=== PATIENT | female | born 1950 | race Caucasian/White ===

== ENCOUNTER 2016-08-22 19:43 | Inpatient (IN) | payer SELFPAY ==
[~2016-08-22] VITALS: Ht 152.4 cm; Wt 64.7 kg
[2016-08-22] MEDS ORDERED: PANTOPRAZOLE SODIUM 40 MG/10 ML VIAL IV ONE (20:45)
[2016-08-22] MEDS ORDERED: SODIUM CHLORIDE 0.9% 1,000 ML IV ONE (20:45)
[2016-08-22 20:49] LABS: CONDITION Y; DEFINITIVE SEE PRINTOUT; Hematocrit 26.7 % (36.0-46.0); Hemoglobin 8.7 g/dL (12.2-16.2); Mean Corpuscular Hemoglobin 23.8 pg (28.0-32.0); Mean Corpuscular Hgb Conc. 32.7 g/dL (32.0-36.0); Mean Corpuscular Volume 72.9 fL (80.0-100.0); Mean Platelet Volume 10.2 fL (7.4-10.4); Platelet Count (auto) 354 10^3/uL (140-450); SUSPECT SEE PRINTOUT; White Blood Cell 8.9 10^3/uL (4.4-10.8)
[2016-08-22 21:00] LABS: Albumin 1.9 g/dL (3.4-5.0); Anion Gap 18 (5-15); Aspartate Aminotransferase 52 U/L (15-37); BUN/Creatinine Ratio 24.4; Blood Urea Nitrogen 19 mg/dL (7-18); Calcium 8.3 mg/dL (8.5-10.1); Carbon Dioxide 16 mmol/L (21-32); Chloride 99 mmol/L (98-107); GFR African American 96 mL/min; GFR Non-African American 79 mL/min; Glucose 98 mg/dL (74-106); Magnesium 1.5 mg/dL (1.6-2.6); Sodium 133 mmol/L (136-145)
[2016-08-22 21:05] LABS: Alkaline Phosphatase 423 U/L (45-117); Bilirubin, Total 0.9 mg/dL (0.2-1.0); Total Protein 6.4 g/dL (6.4-8.2)
[2016-08-22 21:33] LABS: INR 1.25 (0.9-1.15); Partial Thromboplastin Time 39.3 sec (22.64-33.71)
[2016-08-22 21:36] LABS: Prothrombin Time 13.7 sec (9.37-12.3)
[2016-08-22 21:43] LABS: Red Cell Distribution Width 20.1 % (11.6-16.0)
[2016-08-22 21:44] LABS: Metamyelocytes % 0; Myelocytes % 0; Promyelocytes % 0; Reactive Lymphocytes 0
[2016-08-22 22:18] LABS: Anisocytosis Slight; Platelet Estimate Adequate
[2016-08-22 22:19] LABS: Hypochromia Moderate
[2016-08-22] MEDS: SODIUM CHLORIDE 0.9% 1,000 ML IV SCH (23:38)
[2016-08-22] MEDS ORDERED: ACETAMINOPHEN 325 MG TAB PO PRN (23:45)
[2016-08-22] MEDS ORDERED: MORPHINE SULF INJ 2 MG/ML SYRINGE 1ML IV PRN (23:45)
[2016-08-22] MEDS ORDERED: SODIUM CHLORIDE 0.9% 500 ML IV ONE (23:45)
[2016-08-22] MEDS ORDERED: POTASSIUM CHL 20 Meq TABLET PO ONE (23:45)
[2016-08-22] MEDS ORDERED: NITROGLYCERIN 0.4 MG SL TAB SL PRN (23:45)
[2016-08-23] VITALS (11 sets, daily range): BP systolic 106–140; BP diastolic 57–89
[2016-08-23] MEDS: MAGNESIUM SULFATE 1GM/100ML 100 ML IV SCH ×4 (00:11→17:35)
[2016-08-23 02:44] LABS: Urine RBC None Seen /hpf (0 - 4)
[2016-08-23 03:23] LABS: Urine Bilirubin Negative (Negative); Urine Blood Negative /uL (Negative); Urine Color Yellow (Yellow); Urine Glucose Normal (Normal); Urine Ketone TRACE (Negative); Urine Nitrite Negative (Negative); Urine Squamous Epithelial Cell FEW /hpf (<5)
[2016-08-23] MEDS: HYDROcodone-ACET 5/325MG TAB PO PRN ×2 (06:01→20:00)
[2016-08-23 07:55] LABS: Basophils # (auto) 0 uL; CONDITION Y; DEFINITIVE SEE PRINTOUT; Eosinophils # (auto) 0.1 uL; Hematocrit 24.5 % (36.0-46.0); Hemoglobin 8.3 g/dL (12.2-16.2); Lymphocytes # (auto) 0.8 uL; Lymphocytes % (auto) 10.4 % (10.0-50.0); Mean Corpuscular Hemoglobin 25.1 pg (28.0-32.0); Mean Corpuscular Hgb Conc. 33.9 g/dL (32.0-36.0); Mean Platelet Volume 10.1 fL (7.4-10.4); Monocytes # (auto) 0.7 uL; Monocytes % (auto) 9.4 % (0.0-12.0); Neutrophils # (auto) 5.7 uL; Neutrophils % (auto) 79.2 % (37.0-80.0); Platelet Count (auto) 279 10^3/uL (140-450); Red Cell Distribution Width 20.7 % (11.6-16.0); SUSPECT SEE PRINTOUT; White Blood Cell 7.3 10^3/uL (4.4-10.8)
[2016-08-23 07:58] LABS: Anisocytosis Slight; Microcytosis Moderate
[2016-08-23 07:59] LABS: Hypochromia Slight; Platelet Estimate Adequate
[2016-08-23] MEDS ORDERED: SUCR1TAB PO (08:10)
[2016-08-23] MEDS ORDERED: CARI-316 PO (08:13)
[2016-08-23] MEDS ORDERED: CITA-77 PO (08:14)
[2016-08-23 08:18] LABS: Albumin 1.7 g/dL (3.4-5.0); Bilirubin, Total 1.3 mg/dL (0.2-1.0); Calcium 7.9 mg/dL (8.5-10.1); Potassium 3.3 mmol/L (3.5-5.1); Total Protein 5.5 g/dL (6.4-8.2)
[2016-08-23] MEDS ORDERED: PANTOPRAZOLE SODIUM 40 MG/10 ML VIAL IV SCH (10:00)
[2016-08-23] MEDS ORDERED: SUCRALFATE 1 GM/10 ML ORAL SUSP PO SCH (11:30)
[2016-08-23] MEDS ORDERED: POTASSIUM CHL 20 Meq TABLET PO ONE (12:00)
[2016-08-23] MEDS ORDERED: LIDOCAINE VISCOUS 2% 15ML UD ONE (12:51)
[2016-08-23] MEDS ORDERED: SODIUM CHLORIDE LOCK 10 ML ONE (12:51)
[2016-08-23] MEDS ORDERED: diphenhdrAMINE HCL 50 MG/1 ML VL ONE (12:53)
[2016-08-23] MEDS: fentaNYL CITRATE 100 MCG/2 ML VL ONE ×2 (13:09→13:13)
[2016-08-23] MEDS: MIDAZOLAM HCL 5 MG/ML-1ML VIAL ONE ×2 (13:09→13:13)
[2016-08-23 16:29] LABS: Hemoglobin 9.5 g/dL (12.2-16.2)
[2016-08-23] MEDS: SODIUM CHLORIDE 0.9% 1,000 ML IV SCH (16:39)
[2016-08-23 18:14] LABS: BUN/Creatinine Ratio 23.5; Calcium 8.3 mg/dL (8.5-10.1); Potassium 3.3 mmol/L (3.5-5.1)
[2016-08-23] MEDS: ONDANSETRON HCL 4 MG/2 ML VIAL IV PRN (22:31)
[2016-08-23] MEDS: MORPHINE SULF INJ 2 MG/ML SYRINGE 1ML IV PRN (22:32)
[2016-08-24] MEDS: ZOLPIDEM TARTRATE 5 MG TAB PO PRN
[2016-08-24] MEDS: SODIUM CHLORIDE 0.9% 1,000 ML IV SCH ×2 (02:42→18:28)
[2016-08-24] MEDS: MORPHINE SULF INJ 2 MG/ML SYRINGE 1ML IV PRN ×3 (04:28→23:00)
[2016-08-24] MEDS: ONDANSETRON HCL 4 MG/2 ML VIAL IV PRN ×3 (04:28→23:57)
[2016-08-24 04:55] VITALS: BP 136/75
[2016-08-24 06:19] LABS: CONDITION Y; DEFINITIVE SEE PRINTOUT; Hemoglobin 8.9 g/dL (12.2-16.2); Mean Corpuscular Hemoglobin 24.4 pg (28.0-32.0); Mean Corpuscular Hgb Conc. 32.8 g/dL (32.0-36.0); Mean Corpuscular Volume 74.5 fL (80.0-100.0); Mean Platelet Volume 10.9 fL (7.4-10.4); Platelet Count (auto) 285 10^3/uL (140-450); SUSPECT SEE PRINTOUT; White Blood Cell 12.2 10^3/uL (4.4-10.8)
[2016-08-24 06:22] LABS: Metamyelocytes % 0; Myelocytes % 0; Promyelocytes % 0; Reactive Lymphocytes 0
[2016-08-24 06:37] LABS: Magnesium 2.1 mg/dL (1.6-2.6); Potassium 3.4 mmol/L (3.5-5.1)
[2016-08-24 08:00] VITALS: BP 132/84
[2016-08-24 08:45] VITALS: BP 132/84
[2016-08-24 09:17] LABS: Microcytosis Moderate
[2016-08-24 09:18] LABS: Anisocytosis Slight; Platelet Estimate Adequate
[2016-08-24 09:19] LABS: Hypochromia Slight
[2016-08-24] MEDS: PANTOPRAZOLE 40 MG TAB PO SCH (10:20)
[2016-08-24] MEDS ORDERED: POTASSIUM CHL 20 Meq TABLET PO ONE (12:30)
[2016-08-24 13:06] VITALS: BP 141/73
[2016-08-24 13:13] LABS: Albumin 1.7 g/dL (3.4-5.0); BUN/Creatinine Ratio 24.4; Bilirubin, Total 2.3 mg/dL (0.2-1.0); Calcium 8.2 mg/dL (8.5-10.1); Potassium 3.5 mmol/L (3.5-5.1); Total Protein 5.9 g/dL (6.4-8.2)
[2016-08-24 16:23] VITALS: BP 147/93
[2016-08-24 17:12] LABS: Urine Color Yellow (Yellow); Urine Glucose Normal (Normal); Urine Mucus FEW (None Seen); Urine RBC 50 /hpf (0 - 4)
[2016-08-24 17:27] LABS: Urine Bilirubin 1+ (Negative); Urine Blood 2+ /uL (Negative); Urine Ketone 2+ (Negative); Urine Nitrite POSITIVE (Negative)
[2016-08-24 21:47] VITALS: BP 142/70
[2016-08-25] MEDS ORDERED: SODIUM CHLORIDE 0.9% 1,000 ML IV ONE (00:45)
[2016-08-25] MEDS ORDERED: VANCOMYCIN PER PHARMACY 0 MG IV SCH (00:45)
[2016-08-25] MEDS ORDERED: VANCOMYCIN 1GM/250ML D5W 250 ML IV ONE (01:00)
[2016-08-25 03:49] LABS: Urine Blood 2+ /uL (Negative); Urine Color Yellow (Yellow); Urine Glucose Normal (Normal); Urine Ketone 1+ (Negative); Urine Mucus FEW (None Seen); Urine Nitrite Negative (Negative); Urine RBC 1 /hpf (0 - 4)
[2016-08-25 03:57] LABS: Urine Bilirubin POSITIVE (Negative)
[2016-08-25 05:03] VITALS: BP 97/70
[2016-08-25 06:11] LABS: CONDITION Y; DEFINITIVE SEE PRINTOUT; Hematocrit 26.1 % (36.0-46.0); Hemoglobin 8.5 g/dL (12.2-16.2); Mean Corpuscular Hemoglobin 24.3 pg (28.0-32.0); Mean Corpuscular Hgb Conc. 32.6 g/dL (32.0-36.0); Mean Corpuscular Volume 74.6 fL (80.0-100.0); Platelet Count (auto) 261 10^3/uL (140-450); SUSPECT SEE PRINTOUT; White Blood Cell 12.3 10^3/uL (4.4-10.8)
[2016-08-25 06:13] LABS: Red Cell Distribution Width 20.3 % (11.6-16.0)
[2016-08-25 06:14] LABS: Metamyelocytes % 0; Myelocytes % 0; Promyelocytes % 0; Reactive Lymphocytes 0
[2016-08-25 06:28] LABS: Potassium 3.4 mmol/L (3.5-5.1)
[2016-08-25 06:32] LABS: Albumin 1.5 g/dL (3.4-5.0); BUN/Creatinine Ratio 18.6; Calcium 7.7 mg/dL (8.5-10.1)
[2016-08-25 06:36] LABS: Bilirubin, Total 3.8 mg/dL (0.2-1.0); Total Protein 5.6 g/dL (6.4-8.2)
[2016-08-25 08:00] VITALS: BP 108/75
[2016-08-25] MEDS: VANCOMYCIN 1GM/250ML D5W 250 ML IV SCH ×2 (08:57→21:34)
[2016-08-25 09:00] VITALS: BP 108/75
[2016-08-25 10:10] LABS: INR 1.43 (0.9-1.15)
[2016-08-25 10:16] LABS: Prothrombin Time 15.6 sec (9.37-12.3)
[2016-08-25 10:23] LABS: Bilirubin, Total 3.6 mg/dL (0.2-1.0)
[2016-08-25 10:30] LABS: Bilirubin, Direct 3.1 mg/dL (0-0.2)
[2016-08-25] MEDS: PANTOPRAZOLE 40 MG TAB PO SCH (10:53)
[2016-08-25 11:08] LABS: Platelet Estimate Adequate
[2016-08-25 11:10] LABS: Anisocytosis Slight; Burr Cells FEW; Hypochromia Moderate; Microcytosis Moderate; Ovalocytes FEW; Tear Drop Cells FEW
[2016-08-25 13:49] VITALS: BP 116/73
[2016-08-25] MEDS: LEVOFLOXACIN 500MG 100 ML IV SCH (14:51)
[2016-08-25] MEDS: SOD CHL 0.9%/ KCL 20MEQ 1,000 ML IV SCH ×2 (17:05→17:24)
[2016-08-25 17:18] VITALS: BP 125/77
[2016-08-25] MEDS: MORPHINE SULF INJ 2 MG/ML SYRINGE 1ML IV PRN ×2 (17:24→21:35)
[2016-08-25] MEDS: ONDANSETRON HCL 4 MG/2 ML VIAL IV PRN (21:35)
[2016-08-25 22:00] VITALS: BP 110/63
[2016-08-26] VITALS (18 sets, daily range): BP systolic 91–126; BP diastolic 60–87
[2016-08-26] MEDS: SOD CHL 0.9%/ KCL 20MEQ 1,000 ML IV SCH (04:45)
[2016-08-26 08:13] LABS: Basophils # (auto) 0 uL; Basophils % (auto) 0.3 % (0.0-2.0); CONDITION Y; DEFINITIVE SEE PRINTOUT; Eosinophils # (auto) 0 uL; Eosinophils % (auto) 0.2 % (0.0-7.0); Hematocrit 23.7 % (36.0-46.0); Hemoglobin 7.9 g/dL (12.2-16.2); Lymphocytes # (auto) 0.4 uL; Lymphocytes % (auto) 3.1 % (10.0-50.0); Mean Corpuscular Hemoglobin 24.3 pg (28.0-32.0); Mean Corpuscular Hgb Conc. 33.2 g/dL (32.0-36.0); Mean Corpuscular Volume 73.3 fL (80.0-100.0); Mean Platelet Volume 11.6 fL (7.4-10.4); Monocytes # (auto) 0.4 uL; Monocytes % (auto) 3.1 % (0.0-12.0); Neutrophils # (auto) 10.9 uL; Neutrophils % (auto) 93.3 % (37.0-80.0); Platelet Count (auto) 238 10^3/uL (140-450); SUSPECT SEE PRINTOUT; White Blood Cell 11.7 10^3/uL (4.4-10.8)
[2016-08-26 08:19] LABS: Red Cell Distribution Width 20.1 % (11.6-16.0)
[2016-08-26] MEDS: VANCOMYCIN 1GM/250ML D5W 250 ML IV SCH (08:24)
[2016-08-26] MEDS: SODIUM CHLORIDE 0.9% 1,000 ML IV SCH ×2 (08:25→21:05)
[2016-08-26 08:29] LABS: Platelet Estimate Adequate
[2016-08-26 08:32] LABS: Albumin 1.3 g/dL (3.4-5.0); Anisocytosis Moderate; BUN/Creatinine Ratio 21.7; Bilirubin, Total 4.2 mg/dL (0.2-1.0); Calcium 7.5 mg/dL (8.5-10.1); Hypochromia Moderate; Magnesium 1.7 mg/dL (1.6-2.6); Microcytosis Moderate; Phosphorus 1.4 mg/dL (2.5-4.90); Potassium 3.6 mmol/L (3.5-5.1); Total Protein 4.9 g/dL (6.4-8.2)
[2016-08-26 08:33] LABS: Burr Cells FEW; Ovalocytes FEW
[2016-08-26] MEDS: PANTOPRAZOLE 40 MG TAB PO SCH (11:32)
[2016-08-26] MEDS: LEVOFLOXACIN 500MG 100 ML IV SCH (11:32)
[2016-08-26 22:29] LABS: Hemoglobin 11.4 g/dL (12.2-16.2)
[2016-08-27 05:06] VITALS: BP 98/63
[2016-08-27 06:32] LABS: CONDITION Y; DEFINITIVE SEE PRINTOUT; Hematocrit 30.8 % (36.0-46.0); Hemoglobin 10.2 g/dL (12.2-16.2); Mean Corpuscular Hemoglobin 25.6 pg (28.0-32.0); Mean Corpuscular Hgb Conc. 33.2 g/dL (32.0-36.0); Mean Corpuscular Volume 77.3 fL (80.0-100.0); Mean Platelet Volume 11.6 fL (7.4-10.4); Platelet Count (auto) 211 10^3/uL (140-450); SUSPECT SEE PRINTOUT; White Blood Cell 12.8 10^3/uL (4.4-10.8)
[2016-08-27 06:38] LABS: Red Cell Distribution Width 23.6 % (11.6-16.0)
[2016-08-27 06:39] LABS: Metamyelocytes % 0; Myelocytes % 0; Promyelocytes % 0; Reactive Lymphocytes 0
[2016-08-27 06:58] LABS: Albumin 1.2 g/dL (3.4-5.0); Bilirubin, Total 6.4 mg/dL (0.2-1.0); Calcium 7.5 mg/dL (8.5-10.1); Magnesium 1.9 mg/dL (1.6-2.6); Phosphorus 1.4 mg/dL (2.5-4.90); Potassium 3.3 mmol/L (3.5-5.1); Total Protein 4.7 g/dL (6.4-8.2)
[2016-08-27 07:52] LABS: Anisocytosis Moderate; Giant Platelets Few; Hypochromia Slight; Ovalocytes FEW; Platelet Estimate Adequate; Tear Drop Cells FEW
[2016-08-27 08:00] VITALS: BP 111/53
[2016-08-27 09:00] VITALS: BP 111/53
[2016-08-27] MEDS: LEVOFLOXACIN 500MG 100 ML IV SCH (10:47)
[2016-08-27] MEDS: PANTOPRAZOLE 40 MG TAB PO SCH (10:47)
[2016-08-27] MEDS: SODIUM CHLORIDE 0.9% 1,000 ML IV SCH (10:47)
[2016-08-27 13:00] VITALS: BP 111/78
[2016-08-27] MEDS: MEROPENEM 1GM IVPB 100 ML IV SCH (16:57)
[2016-08-27 17:00] VITALS: BP 100/63
[2016-08-27] MEDS: MORPHINE SULF INJ 2 MG/ML SYRINGE 1ML IV PRN (19:26)
[2016-08-27] MEDS: ONDANSETRON HCL 4 MG/2 ML VIAL IV PRN (19:26)
[2016-08-27 22:34] VITALS: BP 100/64
[2016-08-28] MEDS: SODIUM CHLORIDE 0.9% 1,000 ML IV SCH ×2 (00:01→13:05)
[2016-08-28] MEDS: MEROPENEM 1GM IVPB 100 ML IV SCH ×3 (00:05→16:00)
[2016-08-28] MEDS: ONDANSETRON HCL 4 MG/2 ML VIAL IV PRN ×3 (01:18→03:48)
[2016-08-28] MEDS: HYDROcodone-ACET 5/325MG TAB PO PRN (01:19)
[2016-08-28] MEDS: MORPHINE SULF INJ 2 MG/ML SYRINGE 1ML IV PRN ×2 (03:48)
[2016-08-28 04:59] VITALS: BP 104/68
[2016-08-28 06:59] LABS: CONDITION Y; DEFINITIVE SEE PRINTOUT; Hematocrit 30.9 % (36.0-46.0); Hemoglobin 10.2 g/dL (12.2-16.2); Mean Corpuscular Hemoglobin 25.7 pg (28.0-32.0); Mean Corpuscular Hgb Conc. 33.1 g/dL (32.0-36.0); Mean Corpuscular Volume 77.7 fL (80.0-100.0); Mean Platelet Volume 11.9 fL (7.4-10.4); Platelet Count (auto) 210 10^3/uL (140-450); SUSPECT SEE PRINTOUT; White Blood Cell 13.9 10^3/uL (4.4-10.8)
[2016-08-28 07:27] LABS: Red Cell Distribution Width 23.2 % (11.6-16.0)
[2016-08-28 07:28] LABS: Metamyelocytes % 0; Myelocytes % 0; Promyelocytes % 0; Reactive Lymphocytes 0
[2016-08-28 07:42] LABS: Albumin 1.1 g/dL (3.4-5.0); Bilirubin, Total 6.1 mg/dL (0.2-1.0); Calcium 7.7 mg/dL (8.5-10.1); Magnesium 1.9 mg/dL (1.6-2.6); Phosphorus 1.8 mg/dL (2.5-4.90); Potassium 3.4 mmol/L (3.5-5.1); Total Protein 4.7 g/dL (6.4-8.2)
[2016-08-28 09:00] VITALS: BP 97/69
[2016-08-28] MEDS: PANTOPRAZOLE 40 MG TAB PO SCH (09:49)
[2016-08-28 10:59] LABS: Microcytosis Slight; Platelet Estimate Adequate
[2016-08-28 11:00] LABS: Anisocytosis Moderate; Hypochromia Slight; Ovalocytes FEW
[2016-08-28 11:01] LABS: Burr Cells FEW; Tear Drop Cells FEW
[2016-08-28 11:02] LABS: Large Platelets FEW
[2016-08-28 13:00] VITALS: BP 109/77
[2016-08-28 17:00] VITALS: BP 106/58
[2016-08-28 20:00] VITALS: BP 111/53
[2016-08-28 21:30] VITALS: BP 97/65
[2016-08-29] VITALS (7 sets, daily range): BP systolic 89–116; BP diastolic 48–68
[2016-08-29] MEDS: SODIUM CHLORIDE 0.9% 1,000 ML IV SCH ×2 (02:25→15:47)
[2016-08-29] MEDS: MORPHINE SULFATE 4 MG/ML SYRG IV PRN (06:50)
[2016-08-29] MEDS: MEROPENEM 1GM IVPB 100 ML IV SCH ×3 (08:45→15:48)
[2016-08-29] MEDS: PANTOPRAZOLE 40 MG TAB PO SCH (10:00)
[2016-08-30] MEDS: MEROPENEM 1GM IVPB 100 ML IV SCH ×4 (00:05→23:54)
[2016-08-30] MEDS: MORPHINE SULFATE 4 MG/ML SYRG IV PRN ×3 (00:06→21:32)
[2016-08-30] MEDS: SODIUM CHLORIDE 0.9% 1,000 ML IV SCH ×2 (04:20→18:25)
[2016-08-30 05:00] VITALS: BP 102/59
[2016-08-30 07:55] VITALS: BP 101/62
[2016-08-30 09:00] VITALS: BP 101/62
[2016-08-30] MEDS: PANTOPRAZOLE 40 MG TAB PO SCH (10:00)
[2016-08-30 13:00] VITALS: BP 108/79
[2016-08-30 17:00] VITALS: BP 110/78
[2016-08-30 22:00] VITALS: BP 106/74
[2016-08-31] MEDS: MORPHINE SULFATE 4 MG/ML SYRG IV PRN ×3 (01:34→16:25)
[2016-08-31 05:00] VITALS: BP 100/69
[2016-08-31] MEDS: MEROPENEM 1GM IVPB 100 ML IV SCH ×2 (08:01→16:25)
[2016-08-31] MEDS: SODIUM CHLORIDE 0.9% 1,000 ML IV SCH ×2 (08:01→22:51)
[2016-08-31 09:00] VITALS: BP 107/70
[2016-08-31 10:41] LABS: INR 1.52 (0.9-1.15)
[2016-08-31 10:46] LABS: Prothrombin Time 16.6 sec (9.37-12.3)
[2016-08-31 12:11] VITALS: BP 120/83
[2016-08-31] MEDS: PANTOPRAZOLE 40 MG TAB PO SCH (12:34)
[2016-08-31] MEDS ORDERED: LIDOCAINE 1% HCL (LOCAL ANESTH.) INJ 20ML MDV ID ONE (16:00)
[2016-08-31 16:23] VITALS: BP 110/71
[2016-08-31 18:27] LABS: CONDITION Y; DEFINITIVE SEE PRINTOUT; Hematocrit 29.3 % (36.0-46.0); Hemoglobin 9.7 g/dL (12.2-16.2); Mean Corpuscular Hemoglobin 25.8 pg (28.0-32.0); Mean Corpuscular Hgb Conc. 33.2 g/dL (32.0-36.0); Mean Corpuscular Volume 77.8 fL (80.0-100.0); Mean Platelet Volume 11.6 fL (7.4-10.4); Platelet Count (auto) 214 10^3/uL (140-450); SUSPECT SEE PRINTOUT; White Blood Cell 9.8 10^3/uL (4.4-10.8)
[2016-08-31 18:30] LABS: Red Cell Distribution Width 23.3 % (11.6-16.0)
[2016-08-31 18:32] LABS: Metamyelocytes % 0; Myelocytes % 0; Promyelocytes % 0; Reactive Lymphocytes 0
[2016-08-31 18:40] LABS: Anisocytosis Moderate; Hypochromia Slight; Platelet Estimate Adequate
[2016-08-31 18:42] LABS: Burr Cells FEW; Ovalocytes FEW; Platelet Clumps FEW; Tear Drop Cells FEW
[2016-08-31] MEDS: NEUTRA-PHOS TABLET PO SCH ×2 (18:42→22:50)
[2016-08-31 18:43] LABS: Giant Platelets Few
[2016-08-31 18:47] LABS: Albumin 1.1 g/dL (3.4-5.0); BUN/Creatinine Ratio 33.3; Bilirubin, Total 8.6 mg/dL (0.2-1.0); Calcium 7.9 mg/dL (8.5-10.1); Potassium 3.6 mmol/L (3.5-5.1)
[2016-08-31 20:00] VITALS: BP 112/84
[2016-08-31] MEDS: HYDROcodone-ACET 5/325MG TAB PO PRN (21:09)
[2016-08-31 22:00] VITALS: BP 112/84
[2016-08-31] MEDS: SODIUM CHLOR 0.9% PF (SALINE LOCK) 10ML VIAL IV SCH (22:50)
[2016-09-01] VITALS (7 sets, daily range): BP systolic 100–113; BP diastolic 61–76
[2016-09-01] MEDS: MORPHINE SULFATE 4 MG/ML SYRG IV PRN ×4 (00:46→23:04)
[2016-09-01] MEDS: MEROPENEM 1GM IVPB 100 ML IV SCH ×4 (00:47→23:56)
[2016-09-01] MEDS: NEUTRA-PHOS TABLET PO SCH ×4 (09:43→23:04)
[2016-09-01] MEDS: SODIUM CHLOR 0.9% PF (SALINE LOCK) 10ML VIAL IV SCH ×2 (10:00→23:05)
[2016-09-01] MEDS: PANTOPRAZOLE 40 MG TAB PO SCH (10:00)
[2016-09-01] MEDS: SODIUM CHLORIDE 0.9% 1,000 ML IV SCH ×2 (10:03→23:56)
[2016-09-01] MEDS ORDERED: PHYTONADIONE ORAL Susp 10 mg/10ml PO ONE (10:30)
[2016-09-02] MEDS: ZOLPIDEM TARTRATE 5 MG TAB PO PRN (00:54)
[2016-09-02 05:00] VITALS: BP 107/67
[2016-09-02 05:58] LABS: CONDITION Y; DEFINITIVE SEE PRINTOUT; Hematocrit 31.3 % (36.0-46.0); Hemoglobin 10.6 g/dL (12.2-16.2); INR 1.19 (0.9-1.15); Mean Corpuscular Hemoglobin 26.5 pg (28.0-32.0); Mean Corpuscular Hgb Conc. 33.8 g/dL (32.0-36.0); Mean Corpuscular Volume 78.3 fL (80.0-100.0); Mean Platelet Volume 12.6 fL (7.4-10.4); Platelet Count (auto) 192 10^3/uL (140-450); SUSPECT SEE PRINTOUT; White Blood Cell 11.7 10^3/uL (4.4-10.8)
[2016-09-02 06:06] LABS: Red Cell Distribution Width 24.3 % (11.6-16.0)
[2016-09-02 06:07] LABS: Metamyelocytes % 0; Myelocytes % 0; Promyelocytes % 0; Reactive Lymphocytes 0
[2016-09-02 06:08] LABS: Albumin 1.1 g/dL (3.4-5.0); BUN/Creatinine Ratio 38.9; Calcium 7.8 mg/dL (8.5-10.1); Total Protein 5.2 g/dL (6.4-8.2)
[2016-09-02 06:14] LABS: Potassium 3.6 mmol/L (3.5-5.1)
[2016-09-02 06:32] LABS: Hypersegmented Neutrophils Present; Platelet Estimate Adequate
[2016-09-02 06:33] LABS: Anisocytosis Moderate; Hypochromia Slight
[2016-09-02 06:35] LABS: Schistocytes FEW
[2016-09-02 08:00] VITALS: BP 109/76
[2016-09-02 08:02] VITALS: BP 109/76
[2016-09-02] MEDS: MEROPENEM 1GM IVPB 100 ML IV SCH ×2 (08:14→18:20)
[2016-09-02] MEDS: NEUTRA-PHOS TABLET PO SCH ×4 (09:00→22:34)
[2016-09-02] MEDS: PANTOPRAZOLE 40 MG TAB PO SCH (10:00)
[2016-09-02] MEDS: SODIUM CHLOR 0.9% PF (SALINE LOCK) 10ML VIAL IV SCH ×2 (11:03→22:34)
[2016-09-02 12:02] VITALS: BP 108/71
[2016-09-02] MEDS: SODIUM CHLORIDE 0.9% 1,000 ML IV SCH (12:36)
[2016-09-02 16:54] VITALS: BP 112/74
[2016-09-02] MEDS: MORPHINE SULFATE 4 MG/ML SYRG IV PRN ×2 (18:31→22:34)
[2016-09-02 21:06] VITALS: BP 118/57
[2016-09-03] MEDS: MEROPENEM 1GM IVPB 100 ML IV SCH ×4 (00:37→23:52)
[2016-09-03] MEDS: ZOLPIDEM TARTRATE 5 MG TAB PO PRN (00:40)
[2016-09-03 05:25] VITALS: BP 111/73
[2016-09-03 05:30] LABS: CONDITION Y; DEFINITIVE SEE PRINTOUT; Hematocrit 28.8 % (36.0-46.0); Hemoglobin 9.6 g/dL (12.2-16.2); Mean Corpuscular Hemoglobin 26.1 pg (28.0-32.0); Mean Corpuscular Hgb Conc. 33.5 g/dL (32.0-36.0); Mean Corpuscular Volume 78.1 fL (80.0-100.0); Mean Platelet Volume 13.1 fL (7.4-10.4); Platelet Count (auto) 166 10^3/uL (140-450); SUSPECT SEE PRINTOUT
[2016-09-03 05:53] LABS: Red Cell Distribution Width 24.4 % (11.6-16.0)
[2016-09-03 05:54] LABS: Myelocytes % 0; Promyelocytes % 0; Reactive Lymphocytes 0
[2016-09-03 06:02] LABS: BUN/Creatinine Ratio 45.2; Bilirubin, Total 10.6 mg/dL (0.2-1.0); Calcium 7.7 mg/dL (8.5-10.1); Potassium 3.4 mmol/L (3.5-5.1); Total Protein 4.6 g/dL (6.4-8.2)
[2016-09-03 06:22] LABS: Metamyelocytes % 1
[2016-09-03 06:23] LABS: Anisocytosis Moderate; Hypochromia Slight; Platelet Estimate Adequate; Schistocytes FEW
[2016-09-03 06:24] LABS: Microcytosis Slight
[2016-09-03] MEDS: SODIUM CHLORIDE 0.9% 1,000 ML IV SCH (06:45)
[2016-09-03 08:00] VITALS: BP 103/64
[2016-09-03 08:48] VITALS: BP 103/64
[2016-09-03] MEDS: NEUTRA-PHOS TABLET PO SCH ×4 (09:00→21:52)
[2016-09-03] MEDS: PANTOPRAZOLE 40 MG TAB PO SCH (10:00)
[2016-09-03] MEDS: SODIUM CHLOR 0.9% PF (SALINE LOCK) 10ML VIAL IV SCH ×2 (10:31→21:53)
[2016-09-03 12:09] VITALS: BP 121/66
[2016-09-03] MEDS ORDERED: ZOLPIDEM TARTRATE 5 MG TAB PO PRN (14:00)
[2016-09-03] MEDS ORDERED: POTASSIUM CHL 10 Meq TABLET PO ONE (14:00)
[2016-09-03] MEDS: SOD CHL 0.9%/ KCL 20MEQ 1,000 ML IV SCH (15:59)
[2016-09-03 16:33] VITALS: BP 116/58
[2016-09-03] MEDS: MORPHINE SULFATE 4 MG/ML SYRG IV PRN (16:52)
[2016-09-03 21:30] VITALS: BP 102/66
[2016-09-03] MEDS: NYSTATIN TOPICAL POWDER 15GM TOP SCH (21:52)
[2016-09-04] MEDS: MORPHINE SULFATE 4 MG/ML SYRG IV PRN ×3 (00:48→22:57)
[2016-09-04] MEDS: SOD CHL 0.9%/ KCL 20MEQ 1,000 ML IV SCH ×2 (04:35→17:08)
[2016-09-04 05:00] VITALS: BP 114/68
[2016-09-04 06:18] LABS: Albumin 1.1 g/dL (3.4-5.0); Calcium 7.8 mg/dL (8.5-10.1)
[2016-09-04 06:20] LABS: BUN/Creatinine Ratio 31.8
[2016-09-04 06:28] LABS: Bilirubin, Total 13.2 mg/dL (0.2-1.0); Total Protein 5.3 g/dL (6.4-8.2)
[2016-09-04 06:33] LABS: Potassium 3.7 mmol/L (3.5-5.1)
[2016-09-04] MEDS: MEROPENEM 1GM IVPB 100 ML IV SCH ×2 (08:00→16:00)
[2016-09-04 09:00] VITALS: BP 111/65
[2016-09-04] MEDS: NEUTRA-PHOS TABLET PO SCH ×4 (09:00→22:51)
[2016-09-04] MEDS: NYSTATIN TOPICAL POWDER 15GM TOP SCH ×2 (10:00→22:00)
[2016-09-04] MEDS: PANTOPRAZOLE 40 MG TAB PO SCH (10:00)
[2016-09-04] MEDS: SODIUM CHLOR 0.9% PF (SALINE LOCK) 10ML VIAL IV SCH ×2 (10:00→22:51)
[2016-09-04] MEDS: PRO-STAT 64 30ML PO SCH ×2 (11:54→17:20)
[2016-09-04] MEDS: BOOST PLUS 8 ounce PO SCH ×2 (11:54→17:08)
[2016-09-04 13:00] VITALS: BP 123/72
[2016-09-04] MEDS ORDERED: IOHEXOL 300 MG/ML 100ML BOTTLE IJ ONE ×2 (13:41→15:45)
[2016-09-04 16:50] VITALS: BP 114/78
[2016-09-04 20:00] VITALS: BP 144/78
[2016-09-04 22:00] VITALS: BP 144/78
[2016-09-05] MEDS: MEROPENEM 1GM IVPB 100 ML IV SCH ×3 (00:55→17:28)
[2016-09-05 05:47] VITALS: BP 126/67
[2016-09-05] MEDS: SOD CHL 0.9%/ KCL 20MEQ 1,000 ML IV SCH (07:15)
[2016-09-05 08:00] VITALS: BP 125/74
[2016-09-05] MEDS: PRO-STAT 64 30ML PO SCH ×3 (08:00→19:13)
[2016-09-05] MEDS: BOOST PLUS 8 ounce PO SCH ×3 (08:00→19:13)
[2016-09-05 08:41] VITALS: BP 125/74
[2016-09-05] MEDS: NEUTRA-PHOS TABLET PO SCH ×4 (09:00→21:56)
[2016-09-05] MEDS: PANTOPRAZOLE 40 MG TAB PO SCH (10:00)
[2016-09-05] MEDS: SODIUM CHLOR 0.9% PF (SALINE LOCK) 10ML VIAL IV SCH ×2 (10:00→21:56)
[2016-09-05] MEDS: NYSTATIN TOPICAL POWDER 15GM TOP SCH ×2 (10:00→21:56)
[2016-09-05 16:24] VITALS: BP 127/86
[2016-09-05 20:00] VITALS: BP 123/89
[2016-09-05 21:50] VITALS: BP 123/89
[2016-09-06 05:34] VITALS: BP 112/81
[2016-09-06 08:00] VITALS: BP 123/77
[2016-09-06] MEDS: PRO-STAT 64 30ML PO SCH ×3 (08:00→19:02)
[2016-09-06] MEDS: BOOST PLUS 8 ounce PO SCH ×3 (08:00→18:00)
[2016-09-06 08:30] VITALS: BP 123/77
[2016-09-06] MEDS: SOD CHL 0.9%/ KCL 20MEQ 1,000 ML IV SCH ×3 (09:55→23:15)
[2016-09-06] MEDS: SODIUM CHLOR 0.9% PF (SALINE LOCK) 10ML VIAL IV SCH ×2 (10:00→21:48)
[2016-09-06 10:44] LABS: CONDITION Y; DEFINITIVE SEE PRINTOUT; Hematocrit 32.6 % (36.0-46.0); Hemoglobin 10.9 g/dL (12.2-16.2); Mean Corpuscular Hgb Conc. 33.5 g/dL (32.0-36.0); Mean Corpuscular Volume 77.5 fL (80.0-100.0); Mean Platelet Volume 10.5 fL (7.4-10.4); Platelet Count (auto) 119 10^3/uL (140-450); SUSPECT SEE PRINTOUT; White Blood Cell 14.2 10^3/uL (4.4-10.8)
[2016-09-06] MEDS: PANTOPRAZOLE 40 MG TAB PO SCH (10:50)
[2016-09-06] MEDS: NEUTRA-PHOS TABLET PO SCH ×4 (10:50→21:48)
[2016-09-06] MEDS: NYSTATIN TOPICAL POWDER 15GM TOP SCH ×2 (10:50→21:48)
[2016-09-06] MEDS: MEROPENEM 1GM IVPB 100 ML IV SCH ×4 (10:50→23:43)
[2016-09-06 10:54] LABS: Red Cell Distribution Width 25.4 % (11.6-16.0)
[2016-09-06 11:00] LABS: Metamyelocytes % 0; Myelocytes % 0; Promyelocytes % 0; Reactive Lymphocytes 0
[2016-09-06 11:11] LABS: Albumin 1.2 g/dL (3.4-5.0); BUN/Creatinine Ratio 32.5; Bilirubin, Total 15.5 mg/dL (0.2-1.0); Calcium 8.1 mg/dL (8.5-10.1); Potassium 3.4 mmol/L (3.5-5.1); Total Protein 5.2 g/dL (6.4-8.2)
[2016-09-06 12:11] LABS: Microcytosis Slight; Platelet Estimate Decreased
[2016-09-06 12:12] LABS: Anisocytosis Moderate
[2016-09-06 12:13] LABS: Hypochromia Slight
[2016-09-06 13:00] VITALS: BP 110/77
[2016-09-06] MEDS: ONDANSETRON HCL 4 MG/2 ML VIAL IV PRN (14:19)
[2016-09-06] MEDS: MORPHINE SULFATE 4 MG/ML SYRG IV PRN (14:20)
[2016-09-06 16:35] VITALS: BP 102/67
[2016-09-06 21:37] VITALS: BP 116/77
[2016-09-07] VITALS (7 sets, daily range): BP systolic 93–112; BP diastolic 61–72
[2016-09-07] MEDS: NEUTRA-PHOS TABLET PO SCH ×4 (08:17→21:54)
[2016-09-07] MEDS: PANTOPRAZOLE 40 MG TAB PO SCH (08:17)
[2016-09-07] MEDS: MEROPENEM 1GM IVPB 100 ML IV SCH ×3 (08:18→23:43)
[2016-09-07] MEDS: PRO-STAT 64 30ML PO SCH ×3 (08:32→17:07)
[2016-09-07] MEDS: BOOST PLUS 8 ounce PO SCH ×3 (08:32→17:06)
[2016-09-07] MEDS: SODIUM CHLOR 0.9% PF (SALINE LOCK) 10ML VIAL IV SCH ×2 (08:33→21:54)
[2016-09-07] MEDS: MORPHINE SULFATE 4 MG/ML SYRG IV PRN (12:25)
[2016-09-07] MEDS: NYSTATIN TOPICAL POWDER 15GM TOP SCH ×2 (13:01→21:55)
[2016-09-07] MEDS: SOD CHL 0.9%/ KCL 20MEQ 1,000 ML IV SCH (16:08)
[2016-09-08] MEDS: SOD CHL 0.9%/ KCL 20MEQ 1,000 ML IV SCH ×2 (02:16→21:17)
[2016-09-08 05:00] VITALS: BP 104/67
[2016-09-08 08:00] VITALS: BP 104/73
[2016-09-08] MEDS: PANTOPRAZOLE 40 MG TAB PO SCH (09:07)
[2016-09-08] MEDS: MEROPENEM 1GM IVPB 100 ML IV SCH ×2 (09:07→16:00)
[2016-09-08] MEDS: NEUTRA-PHOS TABLET PO SCH ×4 (09:07→22:54)
[2016-09-08] MEDS: NYSTATIN TOPICAL POWDER 15GM TOP SCH ×2 (09:07→22:54)
[2016-09-08 09:13] VITALS: BP 104/73
[2016-09-08] MEDS: BOOST PLUS 8 ounce PO SCH ×3 (09:35→17:47)
[2016-09-08] MEDS: SODIUM CHLOR 0.9% PF (SALINE LOCK) 10ML VIAL IV SCH ×2 (09:35→22:54)
[2016-09-08] MEDS: PRO-STAT 64 30ML PO SCH ×3 (09:35→17:47)
[2016-09-08 12:47] VITALS: BP 115/84
[2016-09-08] MEDS: HYDROcodone-ACET 5/325MG TAB PO PRN ×2 (14:13→17:49)
[2016-09-08 16:32] VITALS: BP 108/69
[2016-09-08 21:17] VITALS: BP 103/71
[2016-09-09] MEDS: MEROPENEM 1GM IVPB 100 ML IV SCH ×3 (01:40→15:15)
[2016-09-09] MEDS: MORPHINE SULFATE 4 MG/ML SYRG IV PRN ×3 (01:40→13:12)
[2016-09-09] MEDS: ONDANSETRON HCL 4 MG/2 ML VIAL IV PRN ×2 (01:41→07:27)
[2016-09-09] MEDS: SOD CHL 0.9%/ KCL 20MEQ 1,000 ML IV SCH ×2 (04:39→17:55)
[2016-09-09 04:57] VITALS: BP 118/71
[2016-09-09 07:51] VITALS: BP 113/78
[2016-09-09] MEDS: PRO-STAT 64 30ML PO SCH ×3 (08:08→18:39)
[2016-09-09] MEDS: BOOST PLUS 8 ounce PO SCH ×3 (08:08→18:39)
[2016-09-09] MEDS: NEUTRA-PHOS TABLET PO SCH ×4 (08:08→22:53)
[2016-09-09] MEDS: PANTOPRAZOLE 40 MG TAB PO SCH (08:09)
[2016-09-09] MEDS: SODIUM CHLOR 0.9% PF (SALINE LOCK) 10ML VIAL IV SCH ×2 (08:09→22:53)
[2016-09-09] MEDS: NYSTATIN TOPICAL POWDER 15GM TOP SCH ×2 (08:09→22:53)
[2016-09-09 09:38] VITALS: BP 113/78
[2016-09-09 11:35] LABS: Albumin 1.1 g/dL (3.4-5.0); Calcium 7.7 mg/dL (8.5-10.1); Potassium 3.5 mmol/L (3.5-5.1)
[2016-09-09 13:00] VITALS: BP 112/82
[2016-09-09 14:17] LABS: Urine Glucose Normal (Normal); Urine Mucus FEW (None Seen); Urine Nitrite Negative (Negative); Urine RBC 31 /hpf (0 - 4)
[2016-09-09 14:24] LABS: Urine Bilirubin 4+ (Negative); Urine Blood 1+ /uL (Negative); Urine Color Orange (Yellow); Urine Ketone 1+ (Negative)
[2016-09-09 16:59] VITALS: BP 112/75
[2016-09-09 22:00] VITALS: BP 115/88
[2016-09-10] MEDS: MEROPENEM 1GM IVPB 100 ML IV SCH ×3 (00:29→16:43)
[2016-09-10 05:00] VITALS: BP 119/76
[2016-09-10] MEDS: MORPHINE SULFATE 4 MG/ML SYRG IV PRN ×2 (05:53→22:18)
[2016-09-10 08:34] VITALS: BP 115/70
[2016-09-10] MEDS: BOOST PLUS 8 ounce PO SCH ×3 (09:09→18:20)
[2016-09-10] MEDS: SOD CHL 0.9%/ KCL 20MEQ 1,000 ML IV SCH ×2 (09:10→22:17)
[2016-09-10] MEDS: PRO-STAT 64 30ML PO SCH ×3 (09:10→18:21)
[2016-09-10] MEDS: NYSTATIN TOPICAL POWDER 15GM TOP SCH ×2 (10:00→22:15)
[2016-09-10] MEDS: SODIUM CHLOR 0.9% PF (SALINE LOCK) 10ML VIAL IV SCH ×2 (10:11→22:15)
[2016-09-10] MEDS: NEUTRA-PHOS TABLET PO SCH ×4 (10:11→22:15)
[2016-09-10] MEDS: PANTOPRAZOLE 40 MG TAB PO SCH (10:11)
[2016-09-10 13:00] VITALS: BP 104/72
[2016-09-10 17:10] VITALS: BP 105/77
[2016-09-10 21:55] VITALS: BP 102/16
[2016-09-11 04:40] VITALS: BP 107/76
[2016-09-11 09:00] VITALS: BP 125/74
[2016-09-11] MEDS: SOD CHL 0.9%/ KCL 20MEQ 1,000 ML IV SCH (09:55)
[2016-09-11] MEDS: NYSTATIN TOPICAL POWDER 15GM TOP SCH (10:00)
[2016-09-11] MEDS: SODIUM CHLOR 0.9% PF (SALINE LOCK) 10ML VIAL IV SCH (10:00)
[2016-09-11] MEDS: NEUTRA-PHOS TABLET PO SCH ×2 (11:02→13:00)
[2016-09-11] MEDS: PANTOPRAZOLE 40 MG TAB PO SCH (11:03)
[2016-09-11] MEDS: MEROPENEM 1GM IVPB 100 ML IV SCH ×2 (11:04)
[2016-09-11] MEDS: PRO-STAT 64 30ML PO SCH ×2 (11:32→12:00)
[2016-09-11] MEDS: BOOST PLUS 8 ounce PO SCH ×2 (11:32→12:00)
[2016-09-11 12:43] VITALS: BP 125/74
[2016-09-11 13:00] VITALS: BP 117/51
== END 2016-09-11 14:25 | disposition home or self-care (01) | DRG 871 ==
LOC: ER 19:59 → TELE 20:00 → TELE-CENTR 08-23 02:50 → CENTRAL 08-23 23:47 → TELE-CENTR 08-24 05:30 → CENTRAL 09-09 16:28
PROVIDERS: ADMIT Nurse Practitioner; ATTEND Internal Medicine Pulmonary Disease
PROC: 02H633Z Insertion of Infusion Device into Right Atrium, Percutaneous Approach (ICD-10-PCS; 2016-08-22)
PROC: 30233N1 Transfusion of Nonautologous Red Blood Cells into Peripheral Vein, Percutaneous Approach (ICD-10-PCS; 2016-08-22)
PROC: 0D768ZZ Dilation of Stomach, Via Natural or Artificial Opening Endoscopic (ICD-10-PCS; 2016-08-23)
PROC: 0W3P8ZZ Control Bleeding in Gastrointestinal Tract, Via Natural or Artificial Opening Endoscopic (ICD-10-PCS; 2016-08-23)
PROC: 0DJ08ZZ Inspection of Upper Intestinal Tract, Via Natural or Artificial Opening Endoscopic (ICD-10-PCS; principal; 2016-08-23 13:04)
DX: A41.51 Sepsis due to Escherichia coli [E. coli] (principal); K26.4 Chronic or unspecified duodenal ulcer with hemorrhage; E43 Unspecified severe protein-calorie malnutrition; G93.40 Encephalopathy, unspecified; K83.1 Obstruction of bile duct; N39.0 Urinary tract infection, site not specified; E87.1 Hypo-osmolality and hyponatremia; E46 Unspecified protein-calorie malnutrition; E87.2 Acidosis; N12 Tubulo-interstitial nephritis, not specified as acute or chronic; D68.9 Coagulation defect, unspecified; B37.49 Other urogenital candidiasis; C22.1 Intrahepatic bile duct carcinoma; D64.9 Anemia, unspecified; I48.91 Unspecified atrial fibrillation; J44.9 Chronic obstructive pulmonary disease, unspecified; Z98.84 Bariatric surgery status; F32.9 Major depressive disorder, single episode, unspecified; Z68.24 Body mass index [BMI] 24.0-24.9, adult; D63.8 Anemia in other chronic diseases classified elsewhere; E83.42 Hypomagnesemia; E87.6 Hypokalemia; I48.0 Paroxysmal atrial fibrillation; Z71.89 Other specified counseling; E86.0 Dehydration; E87.8 Other disorders of electrolyte and fluid balance, not elsewhere classified; Z16.12 Extended spectrum beta lactamase (ESBL) resistance; Z82.3 Family history of stroke; Z83.3 Family history of diabetes mellitus; Z88.0 Allergy status to penicillin; Z88.8 Allergy status to other drugs, medicaments and biological substances; Z81.8 Family history of other mental and behavioral disorders; K80.20 Calculus of gallbladder without cholecystitis without obstruction
CPT/HCPCS: 36415; 36430; 36569; 43213; 43235; 43245; 43255; 51702; 71010; 74176; 74177; 76705; 78226; 80048; 80053; 80202; 81001; 82105; 82140; 82150; 82247; 82248; 82378; 82728; 83605; 83690; 83735; 84100; 84132; 84484; 84702; 85007; 85014; 85018; 85025; 85027; 85610; 85730; 86301; 86304; 86803; 86850; 86900; 86901; 86920; 87040; 87077; 87086; 87088; 87186; 87340; 87493; 93005; 93306; 96361; 96365; 96375; C9113; J1956; J2185; J2250; J2405